=== PATIENT | male | born 1975 | race Caucasian/White ===

== ENCOUNTER 2024-10-16 06:10 | Day surgery (SDC) | payer OTHER ==
[~2024-10-16 06:10] MED LIST: ESCITALOPRAM OX20 MG PO; FLOMAX0.4 MG PO; LACTATED RINGER'S 1,000 ML IV SCH; NORVASC10 MG PO; OMEPRAZOLE20 MG PO; REMERON15 MG PO
[2024-10-16] MEDS ORDERED: NAPROXEN375 MG PO (06:30)
[2024-10-16] MEDS ORDERED: LIDOCAINE HCL 2% 5 ML SDV ONE (06:32)
[2024-10-16] MEDS ORDERED: VITAMIN D350 MC3 PO (06:32)
[2024-10-16] MEDS ORDERED: FLOMAX0.4 MG PO (06:32)
[2024-10-16] MEDS ORDERED: VITAMIN B-121000 MC3 PO (06:33)
[2024-10-16 06:46] VITALS: BP 133/90
[2024-10-16] MEDS ORDERED: IBLOOD GLUCOSE TEST STRIP 1 EA TEST VI PRN ×2 (07:00→08:30)
[2024-10-16] MEDS ORDERED: HEParin SOD (PORCINE) 5,000 UNIT/ML SDV SUB-Q SCH (07:00)
[2024-10-16] MEDS ORDERED: CEFAZOLIN SODIUM 3 GM/30 ML SYR IV SCH (07:00)
[2024-10-16] MEDS ORDERED: LIDOCAINE HCL 1% 5 ML SDV INJ ONE (07:00)
--- NOTE | 2024-10-16 07:24 | NUR ---
PT NOT AVAILABLE FOR VISIT. PROVIDED PRAYER.
[2024-10-16] MEDS ORDERED: ROCURONIUM BROMIDE 50 MG/5 ML SYR ONE ×2 (07:29→08:24)
[2024-10-16] MEDS ORDERED: DEXAMETHASONE SOD PHOS 4 MG/ML VIAL ONE (07:30)
[2024-10-16] MEDS ORDERED: fentaNYL citrate 100 MCG/2 ML VIAL ONE (07:32)
[2024-10-16] MEDS ORDERED: ACETAMINOPHEN 1,000 MG/100 ML VIAL ONE (07:56)
[2024-10-16] MEDS ORDERED: SUGAMMADEX SODIUM 200 MG/2 ML ML ONE (08:24)
[2024-10-16] MEDS ORDERED: fentaNYL citrate 50 MCG/ML SDV IV PRN (08:30)
[2024-10-16] MEDS ORDERED: NALOXONE HCL 0.4 MG SYR IV PRN ×2 (08:30→09:15)
[2024-10-16] MEDS ORDERED: HYDROmorphone HCL 1 MG/ML SYR IV PRN (08:30)
[2024-10-16] MEDS ORDERED: METOCLOPRAMIDE HCL 10 MG/2 ML SDV IV PRN (08:30)
[2024-10-16] MEDS ORDERED: KETOROLAC TROMETHAMINE 30 MG/ML VIAL ONE (08:35)
--- NOTE | 2024-10-16 08:59 | NUR ---
10/16/24 0859 Tiffanie London 0848-PATIENT ARRIVED TO PACU ON 6L MASK NONAROUSABLE ORAL AIRWAY IN PLACE. PATIENT STARTING TO COUGH AROUSING ORAL AIRWAY REMOVED AT 0849. SR HR 70'S. IVF INFUSING. DRESSING TO ABDOMEN CDI. GUARDS AT BEDSIDE. PATIENT MOVING ARMS ABOVE HEAD EDUCATED ON LAYING THEM DOWN. 0857-PATIENT HAS EYES CLOSED PLACED ON RA 95% RR EVEN. ENCOURAGED DEEP BREATHING.
[2024-10-16] MEDS ORDERED: ACETAMINOPHEN 500 MG TAB PO PRN (09:15)
[2024-10-16] MEDS ORDERED: LACTATED RINGER'S 1,000 ML IV SCH (09:15)
[2024-10-16] MEDS ORDERED: IBUPROFEN 600 MG TAB PO PRN (09:15)
[2024-10-16] MEDS ORDERED: HYDROCODONE/ACETA 5/325 TAB PO PRN (09:15)
[2024-10-16] MEDS ORDERED: IBUPROFEN600 MG PO (09:16)
[2024-10-16] MEDS ORDERED: ACETAMINOPHEN500 MG PO (09:16)
[2024-10-16] MEDS ORDERED: HYDROCODON-ACE1 EA10 PO (09:16)
--- NOTE | 2024-10-16 09:30 | NUR ---
PT ARRIVED BACK TO ROOM VIA STRETCHER. ORIENTED TO ROOM AND CALL LIGHT. PT DENIES PAIN. DRESSING C/D/I TO ABDOMEN. GUARDS IN ROOM. FRESH WATER GIVEN AT THIS TIME.
[2024-10-16 09:34] VITALS: BP 126/78
[2024-10-16 10:32] VITALS: BP 129/79
--- NOTE | 2024-10-16 10:45 | NUR ---
1030- PT IS SITTING UP IN BED AND TALKING WITH RN. PT REPORTS 5/10 ABDOMINAL PAIN AND DENIES NAUSEA. SURGICAL SITE SHOWS A SMALL AMOUNT OF RED SHADOWING. PT WAS ABLE TO SIP ON WATER AND EAT CRACKERS. PT REQUESTING MORE SNACKS THAT ARE PROVIDED. VITAL SIGNS OBTAINED. QUESTIONS AND CONCERNS ANSWERED.
--- NOTE | 2024-10-16 10:48 | NUR ---
1042- PAIN MEDICATION GIVEN FOR 5/10 ABDOMINAL PAIN. PT EDUCATED ABOUT PAIN MEDICAITON.
[2024-10-16 11:51] VITALS: BP 144/88
--- NOTE | 2024-10-16 12:08 | NUR ---
1140- PT IS UP AT BEDSIDE WITH PATRICIA DUNNE TO TRY AND VOID. PT IS ABLE TO VOID 400 ML OF YELLOW URINE. 1200- VITAL SIGNS OBTAINED. IV REMOVED. PT GETTING DRESSED WITH GUARDS ASSISTANCE. ALL PAPERWORK AND ITEMS GIVEN TO GUARDS. NO QUESTIONS OR CONERNS. PT DC'S FROM DAY SURGERY AT THIS TIME.
[2024-10-16] MEDS ORDERED: SEVOFLURANE 250 ML BTL INH ONE (14:47)
--- NOTE | 2024-10-17 14:32 | OR ---
[facility] [address], [place] [address] Signed DATE OF OPERATION: 10/16/2024 SURGEON: Faahd Camara MD PREOPERATIVE DIAGNOSIS: Incarcerated large umbilical hernia. POSTOPERATIVE DIAGNOSIS: Incarcerated umbilical hernia fascial defect 4.2 cm (omentum). PROCEDURE: Repair of incarcerated umbilical hernia 4.2 cm fascial defect with implantation of Prolene mesh underlay technique and fascial closure. ANESTHESIA: General endotracheal, Will Raghav, INSTRUCTIONAL SUPPORT ASSISTANT and local 10 mL of 0.25% Marcaine with epinephrine. INDICATION: This 48-year-old man is a prisoner at [facility]. He has noted a large bulge in the region of the umbilicus for quite some time and is increasingly problematic for him. He does have some urinary outlet obstructive symptoms, but no constipation or chronic cough. He had been seen on February 19, 2020, nearly five years ago in the emergency room and underwent CT scan, which confirmed an umbilical hernia at that time, which was large and variably reducible. He is admitted at this time to undergo repair of the incarcerated hernia. He understands the risk of bleeding, infection, recurrence and so on. FINDINGS: Densely adherent omentum to the umbilical hernia sac was noted. The omentum itself was healthy and not ischemic in any way. It was ultimately reduced, though release of the fascial edge was required to do so. Repair consisted of implantation of Prolene mesh in the properitoneal space with reapproximation of the fascia transversely. He tolerated procedure well. DESCRIPTION OF PROCEDURE: The patient was brought to the operating room, given a general endotracheal anesthetic. Preoperative antibiotic Ancef 3 g was given. Sequential compression device stockings were used. After satisfactory general endotracheal anesthesia, the abdomen was clipped and prepared with a chlorhexidine solution and draped sterilely. The bulky hernia was Electronically Signed By: FAHAD CAMARA MD 10/17/24 1432 PATIENT NAME: CRISTIANE ROMEO OPERATIVE REPORT DATE OF : 73 REPORT #: [id number] PHYSICIAN: FAHAD CAMARA MD PCP: [facility] REPORT IS CONFIDENTIAL AND NOT TO BE RELEASED WITHOUT AUTHORIZATION [facility] [address], [place] [address] Signed not reducible despite attempts to do so. A curvilinear incision was made to the left of the umbilicus. Dissection was carried through the dermis with sharp and electrocautery dissection. The bulky fatty tissue from the herniated area was noted. The umbilical skin was freed from the hernia sac and with various maneuvers including blunt and electrocautery dissection, the confines of the fascial defect were identified and approximately 4.2 cm in size. The hernia sac was incised revealing the contents, which was omentum. Hernia sac was discarded. The omentum was manipulated for reduction, but it was not forthcoming and a lateral incision was made in the fascial edge to allow for reduction of the omentum into the abdominal cavity. The properitoneal space was developed bluntly and remnants of the peritoneum reapproximated with Vicryl. A segment of Prolene ProGrip mesh was cut to a circular configuration, much larger than the fascial defect itself and secured with interrupted 0 Prolene suture circumferentially. The fascial defect was then reapproximated transversely with interrupted 0 Prolene suture in a horizontal mattress configuration. A 10 mL of 0.25% Marcaine with epinephrine injected locally. Irrigation was undertaken. Subcutaneous tissue was reapproximated with interrupted 2-0 Vicryl closing the space fully. The skin was then closed with running subcuticular 3-0 Vicryl. Steri-Strips were applied as was an Acticoat dressing. The patient was ultimately extubated without problem and taken to recovery room in good condition having suffered no complications. Sponge, needle, and instrument counts were reported as correct x3. Fahad Camara MD JM/MODL /[id number] cc: Yina Nurse Practitioner [facility] Medical Department Electronically Signed By: FAHAD CAMARA MD 10/17/24 1432 PATIENT NAME: CRISTIANE ROMEO OPERATIVE REPORT DATE OF : 73 REPORT #: [id number] PHYSICIAN: FAHAD CAMARA MD PCP: [facility] REPORT IS CONFIDENTIAL AND NOT TO BE RELEASED WITHOUT AUTHORIZATION [facility] [address], [place] [address] Signed Copies: ~ Electronically Signed By: FAHAD CAMARA MD 10/17/24 1432 PATIENT NAME: CRISTIANE ROMEO BENNETT [place] OPERATIVE REPORT DATE OF : 73 REPORT #: [id number] PHYSICIAN: FAHAD CAMARA MD PCP: [facility] REPORT IS CONFIDENTIAL AND NOT TO BE RELEASED WITHOUT AUTHORIZATION
== END 2024-10-16 12:01 | disposition home or self-care (01) ==
LOC: DS 06:10
PROVIDERS: ATTEND Surgery
PROC: 0WUF0JZ Supplement Abdominal Wall with Synthetic Substitute, Open Approach (ICD-10-PCS; principal; 2024-10-16 07:30)
DX: K42.0 Umbilical hernia with obstruction, without gangrene (principal); N13.9 Obstructive and reflux uropathy, unspecified; E66.01 Morbid (severe) obesity due to excess calories
CPT/HCPCS: 00750; C1781; J0131; J0690; J1100; J1644; J1885; J2003; J2405; J2704; J3010; J3490; J7121